=== PATIENT | female | born 1970 | race Caucasian/White ===

== ENCOUNTER 2016-10-11 13:41 | Inpatient (IN) | payer OTHER ==
[~2016-10-11] VITALS: Ht 170.2 cm; Wt 77.1 kg
--- NOTE | 2016-10-11 13:52 | NUR ---
46 Y/0 FEMALE PRESENTS WITH SI. STATES SHE HAS BEEN FEELING THIS WAY SINCE BEGINNING OF AUGUST; WAS ON ANTI-DEPRESSANT MEDICATIONS BUT STOPPED TAKING THEM 6 DAYS AGO "BECAUSE I WANTED TO". PT ADMITS TO OCCASIONAL COCAINE USE, LAST USE TUESDAY. DENIES PHYSICAL COMPLAINTS TAKEN TO STRETCHER IN AREA WITH SITTER PRESENT
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
[2016-10-11] MEDS ORDERED: LEVOTHYROXINE125 MCG PO (14:07)
[2016-10-11] MEDS ORDERED: OLANZAPINE10 M1 PO (14:07)
[2016-10-11] MEDS ORDERED: OLANZAPINE5 M2 PO (14:07)
[2016-10-11] MEDS ORDERED: FAMOTIDINE20 M1 PO (14:08)
[2016-10-11] MEDS ORDERED: OXCARBAZEPINE300 M1 PO (14:08)
[2016-10-11] MEDS ORDERED: CRESTOR20 M2 PO (14:08)
[2016-10-11] MEDS ORDERED: DULOXETINE HCL30 MG PO (14:08)
[2016-10-11] MEDS ORDERED: METHADONE10 MG/1 M2 PO (14:12)
--- NOTE | 2016-10-11 14:23 | NUR ---
LABS DRAWN AND SENT (SST, LAV)
[2016-10-11 14:32] LABS: ABSOLUTE BASOPHIL COUNT 0 /CUMM (0.0-0.2); ABSOLUTE EOSINOPHIL COUNT 0 /CUMM (0.0-0.7); ABSOLUTE GRANULOCYTE CT 8.2 /CUMM (1.4-6.5); ABSOLUTE LYMPH COUNT 1.7 /CUMM (1.2-3.4); ABSOLUTE MONOCYTE COUNT 0.7 /CUMM (0.10-0.60); BASOPHIL % 0.4 % (0.0-2.0); EOSINOPHIL % 0.3 % (0-5); GRANULOCYTE % 76.7 % (42.2-75.2); MEAN CORPUSCULAR HGB 28.6 PG (27.0-31.0); MEAN CORPUSCULAR HGB CONC 33.2 G/DL (33.0-37.0); MEAN PLATELET VOLUME 7.4 FL (7.4-10.4); PLATELET COUNT 382 /CUMM (130-400); RBC DISTRIBUTION WIDTH 17.4 % (11.5-14.5); RED BLOOD CELL CT 4.65 /CUMM (4.20-5.40); WHITE BLOOD CELL COUNT 10.7 /CUMM (4.8-10.8)
--- NOTE | 2016-10-11 15:20 | NUR ---
CALLED DIETARY TO ORDER DINNER TRAY FOR PT
--- NOTE | 2016-10-11 15:26 | NUR ---
HORACE CLARK AT BEDSIDE
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
--- NOTE | 2016-10-11 15:37 | NUR ---
PT MEDICATED WITH ATIVAN 0.5MG FOR ANXIETY. HER FRIEND REMAINS AT BEDSIDE.
--- NOTE | 2016-10-11 17:34 | NUR ---
DIRECTOR [employer]NATIONAL AT BEDSIDE FOR EVAL
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
--- NOTE | 2016-10-11 18:31 | NUR ---
PT MEDICATED WITH ATIVAN 0.5MG FOR ANXIETY
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
--- NOTE | 2016-10-11 19:45 | NUR ---
PT GIVEN BOX LUNCH TO EAT FOR DINNER
--- NOTE | 2016-10-11 21:04 | NUR ---
PT ASLEEP ON STRETCHER IN HALLWAY. PT ANTICIPATING TRANSFER DOWN TO [facility].
--- NOTE | 2016-10-11 22:43 | IP CRISIS DIAG ASSESS PSYCH ---
Diagnostic Assessment Basic Assessment Insurance Authorization: Insurance #1: Insurance name: [employer] MEDICARE COMPLETE Phone number: Policy number: [id number] Group number: [id number] Authorization number: Primary Care Physician: Patient's PCP: SILVIANO NEVES MD PCP's Phone Number: Patient's Quote: "I don't have coping skills to care for myself". Present Illness: Pt is a 46 year old single female brought to the ED by friend Brice because pt shared she had thoughts to kill herself. Pt plans to "overdose on drugs". Pt states she has been binging on Cocaine for the past 6 days, and "I stopped taking my psych medcations". Pt was alert, oriented and tearful. She reports she is feeling hopeless and depressed. Pt's eye contact was good. Pt denied feeling homicidal, but admits she still has suicidal thoughts. Pt states her diagnoses are Bipolar Disorder and Borderline Personality Disorder. Pt states approximately 1 year ago she tried to kill her self by stabbing herself with a knife. Pt showed me the scar on the top of her abdomen. The pt's mother Carol, confirmed that the pt was in fact hospitalized a year ago for stabbing herself in an attempt to kill herself. Pt report she has been addicted to opiates for approximately ten years. "I had a back injury" Pt was in a skiing accident and she became addicted to pain killers. Presently, pt is on a Methadone program at [facility] in [place]. She reports she takes 55mgs of Methadone daily. Also, pt takes the medications Zyprexa 10mgs AM & 10mgs PM, Cymbalta 30mgs and Trileptal 300mg. Pt states "I have been to many IOP and DBT programs". Pt feels that she hasn't been in a treatment or program that has worked for her. Pt reports she has had three months of sobriety in the years that she has used drugs and alcohol. Pt started using marijuana and alcohol at age 17. Pt's mother Carol reports that the pt has been struggling for years with depression, manic behaviors (stealing money from the family) and a history of Cocaine use since 2005. Carol (mother) reports the pt hasn't taken her psychotropic medications in about 1 week. Patient's Address: [address] [place] [address] Other Phone Number: Who Do You Live With? Family Feel Safe Where You Live? Yes Feel Safe in Your Relationship Yes Marital Status: single Do You Have Children? No Primary Language? Hungarian Language(s) Spoken At Home: Hungarian Family/Informants Interviewed: Phone contact with Carol Chilel Mother of pt. She reports pt hasn't been taking her psychotropic medications for about a week. She report's pt has been guarded and paranoid, as well as very depressed. Mrs. Chilel confirmed that the pt did try to kill herself about a year ago by stabbing and she was admitted to the hospital at [facility] in [place]. Allergies - Coded Allergies: haloperidol (From HALDOL) (Severe, RIGIDITY 10/11/16) Penicillins (UNKNOWN 10/11/16) clindamycin (UNKNOWN 10/11/16) Current Medications - Scheduled Medications Duloxetine HCl 30 MG CAPSULE.DR 1 CAP PO DAILY MENTAL HEALTH #7 (Reported) Entered as Reported by ADWOA KHALIL on 10/11/16 1408 Famotidine 20 MG TABLET 1 TAB PO BID GI #7 (Reported) Entered as Reported by ADWOA KHALIL on 10/11/16 1408 Levothyroxine Sodium 125 MCG TABLET 1 TAB PO DAILY AC THYROID #30 (Reported) Entered as Reported by ADWOA KHALIL on 10/11/16 1407 Methadone HCl 10 MG/ML ORAL.CONC 55 MG PO DAILY RECOVERY (Reported) Entered as Reported by ADWOA KHALIL on 10/11/16 1412 Olanzapine 10 MG TABLET 1 TAB PO DAILY MENTAL HEALTH #14 (Reported) Entered as Reported by ADWOA KHALIL on 10/11/16 1407 Olanzapine 5 MG TABLET 1 TAB PO QPM MENTAL HEALTH #14 (Reported) Entered as Reported by ADWOA KHALIL on 10/11/16 1407 Oxcarbazepine 300 MG TABLET 1 TAB PO BID MENTAL HEALTH #60 (Reported) Entered as Reported by ADWOA KHALIL on 10/11/16 1408 Rosuvastatin Calcium (Crestor) 20 MG TABLET 1 TAB PO DAILY CHOLESTEROL #7 ( Reported) Entered as Reported by ADWOA KHALIL on 10/11/16 1408 Consequences of Psych Med Use: Less Depressive and manic symptoms, stable moods Lab Results: Laboratory Tests 10/11/16 1603: Urine Opiates Screen 247.00, Methadone Screen > 735 H, Barbiturate Screen < 60, Ur Phencyclidine Scrn < 6.00, Amphetamines Screen < 100, U Benzodiazepines Scrn < 85, Urine Cocaine Screen > 1000 H, Urine Cannabis Screen 59.90 H 10/11/16 1455: Urine Opiates Screen < 100.00, Methadone Screen < 40, Barbiturate Screen < 60, Ur Phencyclidine Scrn < 6.00, Amphetamines Screen < 100, U Benzodiazepines Scrn < 85, Urine Cocaine Screen < 50, Urine Cannabis Screen < 5.00 10/11/16 1415: Anion Gap 9, Estimated GFR 59 L, BUN/Creatinine Ratio 10.0, Glucose 93, Calcium 9.4, Total Bilirubin 0.4, AST 15, ALT 27, Alkaline Phosphatase 89, Total Protein 6.9, Albumin 4.1, Globulin 2.8, Albumin/Globulin Ratio 1.5, TSH 105.000 H, Free T4 0.65, CBC w Diff NO MAN DIFF REQ, RBC 4.65, MCV 86.0, MCH 28.6, RDW 17.4 H, MPV 7.4, Gran % 76.7 H, Lymphocytes % 15.8 L, Monocytes % 6.8, Eosinophils % 0.3, Basophils % 0.4, Absolute Granulocytes 8.2 H, Absolute Lymphocytes 1.7, Absolute Monocytes 0.7 H, Absolute Eosinophils 0, Absolute Basophils 0, PUBS MCHC 33.2, Serum Alcohol < 10.0 Toxicology Screen Completed? Yes Results: positive Symptoms of Use: Suicidal ideations, depressive symptoms, no motivation unable to cope with life Past History Past Surgical History Surgical History SMALL BOWEL RESECTION C3/4 FUSION Abuse/Trauma History Trauma History/Current Trauma: Denies Legal History Current Legal Status: none Have you ever been arrested? 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 Diagnosis by History: Bipolar Disorder Borderline Personality Disorder Risk Factors: chronic/serious med cond., high anxiety/distress, history of suicide atmpts, SA/MH hospitalized, substance abuse, poor impulse control, limited support Substance Use/Abuse History Drug Use/Abuse minimum 12mo Hx Substances Used/Abused Yes Substance Used/Abused Cocaine First Use Age 17 Last Used 10/11/16 How much used/taken Unknown How often Daily (binging) For how long 3 months Route of use Smoke Substance Abuse Treatment Substance Abuse Treatment Past Substance Abuse TX Yes Inpatient Treatment Yes Outpatient Treatment Yes Location of Treatment [facility] Reason for Treatment Substance Abuse Dates of Treatment Unknown Response to Treatment Relapse Sexual History Sexually Active No # of partners 0 Sexual Orientation Heterosexual Use of Protection No Sexual Concerns: None reported Education History Highest Level of Education: not sure Preferred Learning Style: experiential Current Mental Status Mental Status Orientation: Person, Place, Situation Affect: Anxious, Depressed, Hopeless, Lonely, Sad Speech: Hyper-verbal, Loud Neuro-vegetative: Appetite Decreased, Helpless, Loss of Interest, Sleep Disturbance Appearance Appearance- Dress/Hygiene: Disheveled, unkempt not groomed. Behaviors Thought Process: Disorganized Thought Content: Paranoid, Pt states she doesn't feel safe Memory: WNL Insight: Fair SI/HI Risk Assessment - Minimum 6mo History- Past Suicidal Ideation/Attempts Yes Current Suicidal Ideation/Att Yes Past Homicidal Ideation/Att: No Current Homicidal Ideation/Attempts No Degree of Intent: Plan, Self Destructive/No , Thoughts/No Intent (HX OF AN ATTEMPT 1 YR AGO.) Danger To: Self Gravely Disabled: Inability, Poor Impulse Control, Poor Judgment Risk Factors: chronic/serious med cond., high anxiety/distress, history of suicide atmpts, SA/MH hospitalized, substance abuse, poor impulse control, limited support Lethality Ratin Needs/Init TX Plan/Goals: Monitor for safety Individual and group therapy Diagnostic evaluation Case management & discharge planning Medication evaluation AUDIT-C Questionnaire: AUDIT-C Questionnaire: Response Value ETOH use in the past year Never 0 # drinks typical/day Doesn't Drink 0 6 or > drinks per occasion Never 0 Total 0 DSM5/PS Stressors/Medical Prob Diagnosis' (DSM 5, Stressors, Medical): F31.5 Bipolar Disorder Severe Depressed, F14.20 Cocaine Use Disorder Severe, F11.20 Opioid Use Disorder Moderate Hx of BPD F17.209 Unspecified Tobacco-Related Disorder, Z59.9 Unspecified Housing & economic problems (disability benefits) Z65.9 Unspecified problems related psychosocial problems. Current GAF: 18
--- NOTE | 2016-10-11 23:50 | NUR ---
pT ARRIVED TO [facility] VIA WHEELCHAIR FROM [facility]. PT VERY SLEEPY, WAS WILLING TO ANSER A FEW QUESTIONS THEN STATED SHE HADN'T SLEPT IN 5 DAYS AND STOPPED ANSWERING QUESTIONS. " i WILL ANSWER ANYMORE QUESTIONS IN THE MORNING". PT IS A&OX3, POOR EYE CONTACT, DOZING AND VISIBLY IRRITABLE WHEN ASKED TO ANSWER QUESTIONS. SHOWN TO ROOM.
--- NOTE | 2016-10-12 04:54 | NUR ---
SLEPT IN INTERVALS UP PACING UNIT ASKING FOR CRACKERS EACH TIME.
--- NOTE | 2016-10-12 07:25 | NUR ---
CALLED CT COUNSELING THIS A.M METHADONE DOSE VERIFIED AT 55MG LAST TAKEN 09/10/16 (55 MG) SPOKE TO ANA AT 0630
[2016-10-12 07:47] VITALS: BP 97/54
[2016-10-12 12:25] VITALS: BP 97/67
--- NOTE | 2016-10-12 13:22 | History & Physical ---
General Information and HPI History of Present Illness: And this middle-aged female is admitted to the hospital because of suicidal ideation and polysubstance drug abuse. She has never been admitted in [place] previously according to the patient and claims that she came to [place] because this was more diagnosis place her psychiatric illness as well as drug rehabilitation and drug addiction. She claims that she was feeling too depressed and wanted to kill herself and therefore asked her friend to drive her to the hospital for evaluation where she was admitted for increasing depression and polysubstance abuse. From medical standpoint she denies any recent ongoing problems but admits that she has been doing a lot of drugs and has not been eating and drinking well and has not been taking her medications. He claims that she tried to kill herself last year and stabbed herself in the stomach when she was operated in [facility] in [place]. She also claims that she has Crohn's disease and was taking Remicade in the past but has not taken it in a long time and presently is not having any symptoms. She claims her bowels are fine and she does not have any bleeding with stools and no significant abdominal pain. She's not sure of any specific family illnesses claims she has never been and has no children and lives with her mother most of the time but sometimes is living with her friend. She is not employed and is on Social Security disability at this time because of psychiatric illness. Allergies/Medications Allergies: Coded Allergies: haloperidol (From HALDOL) (Severe, RIGIDITY 10/11/16) Penicillins (UNKNOWN 10/11/16) clindamycin (UNKNOWN 10/11/16) Home Med list Duloxetine HCl 30 MG CAPSULE.DR 1 CAP PO DAILY MENTAL HEALTH (Reported) Famotidine 20 MG TABLET 1 TAB PO BID GI (Reported) Levothyroxine Sodium 125 MCG TABLET 1 TAB PO DAILY AC THYROID (Reported) Methadone HCl 10 MG/ML ORAL.CONC 55 MG PO DAILY RECOVERY (Reported) Olanzapine 10 MG TABLET 1 TAB PO DAILY MENTAL HEALTH (Reported) Olanzapine 5 MG TABLET 1 TAB PO QPM MENTAL HEALTH (Reported) Oxcarbazepine 300 MG TABLET 1 TAB PO BID MENTAL HEALTH (Reported) Rosuvastatin Calcium (Crestor) 20 MG TABLET 1 TAB PO DAILY CHOLESTEROL ( Reported) Past History Travel History Traveled to [place] past 21 day No Medical History Neurological: NONE EENT: NONE Cardiovascular: NONE Respiratory: NONE Gastrointestinal: Crohn's disease Hepatic: NONE Renal: NONE Musculoskeletal: chronic back pain, disk herniation, fibromyalgia, rheumatoid arthritis, spinal stenosis Psychiatric: anxiety, bipolar disease, chronic pain disorder, depression, opioid dependence, substance abuse Endocrine: NONE Blood Disorders: NONE Cancer(s): NONE 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 Home Review of Systems Review of Systems Constitutional: Reports: see HPI. Denies: no symptoms. EENTM: Denies: no symptoms. Cardiovascular: Denies: no symptoms. Respiratory: Denies: no symptoms. GI: Denies: no symptoms (no symptom of Crohn's disease ), diarrhea, bloody stool, changes in stool. Genitourinary: Denies: no symptoms. Musculoskeletal: Denies: no symptoms. Skin: Denies: no symptoms. Neurological/Psychological: Reports: anxiety, depressed, emotional problems. Hematologic/Endocrine: Denies: no symptoms. Immunologic/Allergic: Denies: no symptoms. All Other Systems: Reviewed and Negative Exam & Diagnostic Data Last 24 Hrs of Vital Signs/I&O Vital Signs Date Time Temp Pulse Resp B/P Pulse O2 O2 Flow FiO2 Ox Delivery Rate 10/12 1225 69 97/67 10/12 0747 96.8 72 97/54 10/11 2128 98.2 84 16 130/70 98 Room Air 10/11 1815 98.2 80 16 134/76 98 Room Air 10/11 1526 97.4 80 16 127/73 93 Room Air 10/11 1447 Room Air 10/11 1350 96.4 76 16 110/73 95 Room Air Intake & Output 10/12 1600 10/12 0800 10/12 0000 Intake Total 250 Output Total Balance 250 Intake, Oral 250 Patient 170 lb Weight Physical Exam General Appearance Alert, Oriented X3, Cooperative, No Acute Distress Skin No Rashes, No Breakdown, No Significant Lesion HEENT Atraumatic, PERRLA, EOMI, Mucous Membr. moist/pink Neck Supple, No JVD, No thryomegaly, +2 Carotid Pulse wo Bruit Lymphatic Cervical nl Cardiovascular Regular Rate, Normal S1, Normal S2, No Murmurs, Gallops, Rubs Lungs Clear to Auscultation, Normal Air Movement Abdomen Normal Bowel Sounds, Soft, No Tenderness, No Hepatospenomegaly, No Masses, she has a midline scar consistent with a history of previous surgery after attempted suicide and self stabbing in the abdomen last year otherwise the exam is benign. Neurological Exam Findings: Normal Gait, Normal Speech, Strength at 5/5 X4 Ext, Normal Tone, Cranial Nerves 3-12 NL, Reflexes 2+ Cranial Nerves II through XII: Intact and within normal limits Extremities No Clubbing, No Cyanosis, No Edema, No Tenderness/Swelling Assessment/Plan Assessment: This middle-aged female is admitted for increasing depression and suicidal ideation as well as polysubstance drug abuse. From medical standpoint she does not have any acute problem at this time although she has a history of Crohn's disease for which she used to take Remicade that she has not taken in a long time but there is no symptom of Crohn's disease. She also has hypothyroidism and probably was on replacement but her TSH is 105 indicating that she has not been taking it for a while. For now we will give her small dose to start with because of possible underlying cardiac risk factors of smoking and cocaine and start her on 50 g for at least a week and then increase it to 75 for another 1-2 weeks instead of giving her all 125 g right away. I think this will be more prudent to start slow and gradually go on for replacement. Is no need for any other workup or treatment at this time from medical standpoint As Ranked By This Provider Problem List: 1. Chronic pain syndrome 2. Depression Qualifiers Depression Type: unspecified Qualified Code: F32.9 - Major depressive disorder, single episode, unspecified Miscellaneous Miscellaneous Documentation Attending Case Discussed With: RAMO LEUNG MD Primary Care Physician: SILVIANO NEVES MD Patient sees these Specialists none Level of Patient Care: MALLORY Dougherty Attending Review Statement Attending Statement Attending MD Statement: examined this patient, reviewed EMR data (avail), discussed with nursing Attending Assessment/Plan: This middle-aged female is admitted for increased depression and polysubstance abuse. She was reportedly on levothyroxin but has not been taking it because of very high TSH and we will start her on a smaller dose and instead of giving her 25 with only give her 50 g for one week and then increase to 75 g for the next week and gradually go back to her regular dose because of some possible underlying cardiac risk factors of smoking and cocaine abuse. She does not need any other workup or treatment from medical standpoint and will be seen as needed.
--- NOTE | 2016-10-12 13:50 | SOCIAL WORKER PROG NOTE PSYCH ---
Social Work Progress Note Progress Note Patient authorized for 3 days from [facility] at [phone] from 10/11-10/14, auth # [id number]. Review on 10/14 with Ashlee nina [id number]. Patient ID number is [id number].
--- NOTE | 2016-10-12 14:24 | NUR ---
PT WAS VISIBLE IN THE [place]. SHE HAS BEEN RESTLESS, AND PACING THE UNIT BUT SHARED THAT SHE WAS TIRES DURING PLANNING GROUP. PT DOES TRY TO LAY DOWN, BUT GETS UP SHORTLY AFTER. IN THE [place] PT HAS ATTENDED PLANNING MEETING BUT NO OTHER GROUPS. SHE HAS SOME INTERACTIONS WITH PEERS. PT HAS THOUGHTS TO HURT HERSELF, BUT HAS NO PLAN.
--- NOTE | 2016-10-12 15:36 | SOCIAL WORKER PROG NOTE PSYCH ---
Social Work Progress Note Progress Note Pt reports inability to care for herself, she is adamant about this, and repeats several times that she "doesnt want to live". She indicates she has no will to live and can not complete daily living skills, "I belong in an instituion". Pt reports having no supports since living alone, she used to live with her Mom and her sister.
--- NOTE | 2016-10-12 15:47 | SOCIAL WORKER SOCIAL HX PSYCH ---
Social History Basic Assessment Insurance Authorization: Insurance #1: Insurance name: [facility] Phone number: Policy number: [id number] Group number: [id number] Authorization number: Curr Source of Income/Entitlements: [facility] Primary Care Physician: Patient's PCP: SILVIANO NEVES MD PCP's Phone Number: Primary Language? Liberian Language(s) Spoken At Home: Liberian Living Situation Rents or Owns Home? rents Feel Safe Where You Are Living No Feel Safe in Relationships? No Comments: Pt does not want to live alone,a nd she only has social relationships "with people who use drugs" Allergies - Coded Allergies: haloperidol (From HALDOL) (Severe, RIGIDITY 10/11/16) Penicillins (UNKNOWN 10/11/16) clindamycin (UNKNOWN 10/11/16) Current Medications - Scheduled Medications Duloxetine HCl 30 MG CAPSULE.DR Cardoza CAP PO DAILY MENTAL HEALTH #7 (Reported) Entered as Reported by ADWOA KHALIL on 10/11/161407 Last Taken: 10/06/16 0800 Famotidine 20 MG TABLET 1 TAB PO BID GI #7 (Reported) Entered as Reported by ADWOA KHALIL on 10/11/161407 Last Taken: 10/06/16 0800 Levothyroxine Sodium 125 MCG TABLET 1 TAB PO DAILY AC THYROID #30 (Reported) Entered as Reported by ADWOA KHALIL on 10/11/161406 Last Taken: 10/06/16 0800 Methadone HCl 10 MG/ML ORAL.CONC 55 MG PO DAILY RECOVERY (Reported) Entered as Reported by ADWOA KHALIL on 10/11/16 1412 Last Taken: 10/11/16 0800 Olanzapine 10 MG TABLET 1 TAB PO DAILY MENTAL HEALTH #14 (Reported) Entered as Reported by ADWOA KHALIL on 10/11/161406 Last Taken: 10/06/16 0800 Olanzapine 5 MG TABLET 1 TAB PO QPM MENTAL HEALTH #14 (Reported) Entered as Reported by ADWOA KHALIL on 10/11/161406 Last Taken: 10/05/16 2200 Oxcarbazepine 300 MG TABLET 1 TAB PO BID MENTAL HEALTH #60 (Reported) Entered as Reported by ADWOA KHALIL on 10/11/161407 Last Taken: 10/05/16 2200 Rosuvastatin Calcium (Crestor) 20 MG TABLET 1 TAB PO DAILY CHOLESTEROL #7 ( Reported) Entered as Reported by ADWOA KHALIL on 10/11/161407 Last Taken: 10/06/16 0800 Past History Past Medical History Neurological: NONE EENT: NONE Cardiovascular: NONE Respiratory: NONE Gastrointestinal: Crohn's disease Hepatic: NONE Renal: NONE Musculoskeletal: chronic back pain, disk herniation, fibromyalgia, rheumatoid arthritis, spinal stenosis Psychiatric: anxiety, bipolar disease, chronic pain disorder, depression, opioid dependence, substance abuse Endocrine: NONE Blood Disorders: NONE Cancer(s): NONE ORTHOTICS ASSISTANT/Reproductive: NONE Past Surgical History Surgical History: non-contributory /Family History Place/Country of Origin: [place], [place] Childhood Family Constellation: Mom Dad sister and 2 brothers Primary Childhood Caretakers: father, mother Family Life During Childhood: "good" DCF Involvement? No Mother's Age (Current/): 74 Relationship w/Mother: We just had a falling out, but it has been strained since the day I was born Father's Age (Current/): 70 ( ) Relationship w/Father: he 3 years ago of brain cancer Any Sibling(s)? Yes Sibling's Gender(s)/Age(s): female Sibling 1:, male Sibling 2:, male Sibling 3: Relationship w/Sibling(s): we all get a long a little bit Relationship w/Friends: I have no supports Family Psych/Sub Abuse/Add Hx: denies Number of Pregnancies: 0 Number of Miscarriages: 0 Number of Abortions: 0 Other Comments: No children Abuse/Trauma History Trauma History/Current Trauma: Denies Legal History Legal Guardian/Address/Phone: self Current Legal Status: none Pending Court Dates: denies Have you ever been arrested No Number of Arrests: 0 Hx of Juvenile Legal Charges? No Hx of Adult Legal Charges? No Civil Proceedings: denies Domestic Relations Court: denies Child Protective Serv Involvmnt denies Case Advocate N/A Psychosocial History Primary Support System: I cant think of anyone Strengths/Capabilities: Desire to feel better Able to ask for help Engaged in outpatient treatment currently Weaknesses: little support in her life, and feels like she cant take care of herself Physical Limitations (Interventions): Physical pain due to multiple medical conditions Last Physical: unknown History of Seizures? No History of Blackouts? No ADL Limitations: She reports not being able to take care of herself and has poor ADLS. [place]/Social/Peer Relations cant identify supports Meaningful Activities: None Childhood Mu-Ism: Restorationism Current Gnosticism Affiliation: Restorationism Is Spirituality Important to You? yes Cultural/Ethnic Issues: denies Are There Developmental Issues? No Milestones Achieved: fine motor, gross motor Psychiatric Treatment History Psych Treatment Inpatient Treatment Yes [facility] Suicidal attempt, Depression Bipolar Disorder Dates of Treatment 2005 Response to Treatment Relaspe, Discontinued psychotropic medications. Precipitating Factors: living alone Current Paratransit Operator: Dr. Victor "a walk in clinic in [place]" Diagnosis: Bipolar Disorder Borderline Personality Disorder Risk Factors: chronic/serious med cond., high anxiety/distress, history of suicide atmpts, SA/MH hospitalized, substance abuse, poor impulse control, limited support Substance Use/Abuse History Drug Use/Abuse Substance Used/Abused Cocaine First Use Age 17 Last Used 10/11/16 How much used/taken Unknown How often Daily (binging) For how long 3 months Route of use Smoke Have Had Periods of Sobriety? Yes Explain: pt had been involved in AA, and was lauren unsure of details Relapse History? Yes Have You Ever Attended AA? Yes Do You Attend AA Currently? No Do You Have a Sponsor? No Symptoms of Use: Suicidal ideations, depressive symptoms, no motivation unable to cope with life Substance Abuse Treatment Substance Abuse Treatment Inpatient Treatment Yes Outpatient Treatment Yes Location of Treatment [facility] Reason for Treatment Substance Abuse Dates of Treatment Unknown Response to Treatment Relapse Sexual History Sexually Active No # of partners 0 Sexual Orientation Heterosexual Use of Protection No Sexual Concerns: None reported Education History Highest Level of Education: high school/GED Highest Grade Completed: 12th Vocational Year Completed: n/a Number of College Years: 0 Preferred Learning Style: experiential HX of Learning Difficulties: None reported Barriers to Learning: None reported Special Communication Needs: None reported Employment History Employment Disability Not in Labor Force: Disabled No. of Jobs in Last 5 Years: 0 History Have You Been in The ? No Current Mental Status Mental Status Orientation: Person, Place, Situation Affect: Anxious, Depressed, Hopeless, Lonely, Sad Speech: Hyper-verbal, Loud Neuro-vegetative: Appetite Decreased, Helpless, Loss of Interest, Sleep Disturbance Appearance Appearance- Dress/Hygiene: Disheveled, unkempt not groomed. Behaviors Thought Process: Disorganized Thought Content: Paranoid, Pt states she doesn't feel safe Memory: WNL Insight: Fair SI/HI Risk Assessment Past Suicidal Ideation/Attempts Yes Current Suicidal Ideation/Att Yes Past Homicidal Ideation/Att: No Current Homicidal Ideation/Attempts No Degree of Intent: Plan, Self Destructive/No , Thoughts/No Intent (HX OF AN ATTEMPT 1 YR AGO.) Danger To: Self Gravely Disabled: Inability, Poor Impulse Control, Poor Judgment Lethality Ratin - Conclusion and Recommendations for treatment - and discharge planning
[2016-10-12 16:00] VITALS: BP 102/75
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
--- NOTE | 2016-10-12 16:48 | NUR ---
Pt reported passive SI thoughts @ 1600 vital signs, however no plan, feels safe here and would not attempt to harm self here, present on the unit and able to verbalize needs, appropriate, and pleasant to interact with, Dr. Patrick informed of the above as well, no further orders - staff aware as well.
--- NOTE | 2016-10-12 19:14 | SOCIAL WORKER TX PLAN PSYCH ---
Treatment Plan - Please Document: - Evidence that there is ongoing collaboration between - the patient and the interdisciplinary team, - including the patient's active participation and - responsibility for engaging in the treatment regimen, - and that the treatment plan is individualized and - relevant to the patient's conditions. - Treatment plan should reflect documentation indicating - that all active therapeutic efforts are included. Strengths/Capabilities: Desire to feel better Able to ask for help Engaged in outpatient treatment currently Physical Limitations (Interventions): Physical pain due to multiple medical conditions Patient Identified Trmt Goals: " I have no will to live, nothing will get better for me." Discharge Plan: IOP Problem/Goals #1 Problem #1: suicidal ideation Goal (Short Term): Today I will attend 2 groups Today I will identify 2 stressors Today I will identify 2 positive supports Today I will work on recognizing 3 emotions I am feeling Goal (Driver Examiner): Be free of suicidal thoughts/attempts Develop 3 coping skills to deal with depression Identify 3 positive support systems to call in crisis Develop a crisis plan with 3 zafar people Identify 2 positive traits per week about myself Identify 2 things I have to look forward to Identify 2 positive people in my life and 1 thing I appreciate about them Interventions: Learn ways to manage depressive symptoms accordingly and identify positive supports to manage life stressors and mood fluctuations. Modalities: Encourage groups, education on depression, provide CBT treatment, family meeting. DSM5/PS Stressors/Medical Prob Diagnosis' (DSM 5, Stressors, Medical): F31.5 Bipolar Disorder Severe Depressed, F14.20 Cocaine Use Disorder Severe, F11.20 Opioid Use Disorder Moderate Hx of BPD F17.209 Unspecified Tobacco-Related Disorder, Z59.9 Unspecified Housing & economic problems (disability benefits) Z65.9 Unspecified problems related psychosocial problems. Current GAF: 18 Treatment Team - Responsibilities of members of the treatment team include: - Medication Management- MD or CHURCH ADMINISTRATOR - Medication Administration and Monitoring- Nurse - Group Therapy- Occupational Therapist - 1:1 Therapy,Disch Planning,family involvement-Flame Cutter
[2016-10-12 20:22] VITALS: BP 98/56
--- NOTE | 2016-10-12 22:43 | NUR ---
Pt is present on the unit, pacing at times and can be social and appropriate yet abruptly become irritable, compliant with PRN administration when staff feels it's applicable and appropriate, affect is constricted, cooperative and compiant overall.
--- NOTE | 2016-10-13 04:55 | NUR ---
PT UP AND DOWN THRU FIRST HALF OF THE NIGHT. PT RECEIVED CPZ 25 AT 0000 WITH EVENTUAL EFFECT.
[2016-10-13 07:51] VITALS: BP 98/50
--- NOTE | 2016-10-13 10:12 | SOCIAL WORKER PROG NOTE PSYCH ---
Social Work Progress Note Progress Note This lyric writer met with patient for the first time today. Patient tearful stating that she has no will to live, and nothing will ever change for her. Patient reports feeling this way since 2005. Patient is refusing to allow me to speak with her mother who patient resides with. Patient states that her mother wants nothing to do with her and that she will not participate in her treatment. Patient refusing to let me reach out to her mother to see if she wants to participate in patients treatment. Patient stating that she does not wish to return to living with her mother and that she wants to be "institutionalized." Patient informed that it is not an easy process to place someone in another type of residence directly from the hospital and there are long waiting lists. Patient was very upset to hear this. This lyric writer attempted to reassure patient that we will set her up with treatment and support when she leaves here so that she does not continue to feel this way. Patient also notified that we will not be discharging her until she starts to feel better and is denying suicidal thoughts. Patient is still actively suicidal and reports that she has no desire to live going forward. Patient reports that she has no supports in the community and that she was brought to the hospital by Jenny, who she met at [facility] in August and has only known since August. Patient reports that she is in methadone maintenance at [facility] and her counselor is Brittany Toro and is allowing me to speak to her.
[2016-10-13 12:19] VITALS: BP 108/69
--- NOTE | 2016-10-13 13:56 | NUR ---
PT WAS VISIBLE IN THE [place] FOR MOST OF THE DAY. DURING PLANNING MEETING IT WAS SHARED TO ME BY THE OTHER MHW THAT PT WAS IRRITABLE AND WOULD NOT MAKE A TREATMENT GOAL. IN THE [place] PT HAS SOME INTERACTIONS WITH PEERS. SHE IS COOPERATIVE WITH STAFF ABOUT GETTING VITALS, AND EATING MEALS. PT DOES HAVE THOUGHTS TO HURT SELF WHEN ASKED, BUT NO PLANS ACCORDING TO THE MHW WHO TALKED TO HER ABOUT IT.
[2016-10-13 15:46] VITALS: BP 115/64
--- NOTE | 2016-10-13 17:22 | CP SOUTH PROGRESS NOTE PSYCH ---
Psych (Inpt) Progress Note Progress Note Include the following elements, when applicable: Involvement in the active treatment of the patient with behavioral observations of the patient and the patient's response to the treatment. Review of the ongoing treatment process in the context of the treatment plan. Indication of how multi-disciplinary staff members are carrying out the treatment plan. Plans for future interventions and recommendations for revision of the treatment plan. Liaison with other physicians/providers. Progress Note: Case and treatment plan discussed in team meeting. Staff reports that the patient can be angry and impulsive. Abrupt. Annoyed about EKG. Stormed out of meeting with executive secretary social welfare. Patient seen at 2:22 pm. She is wearing blue scrubs. Reports she is still very depressed and feels very tired. Reports she isn't sleeping well. States she didn't try trazodone because of prior trazodone hangovers. Report Thorazine is helping with anxiety but does not want a dose increase. Claims she can get sick from Thorazine (vague). Affect is less irritable and less distraught than yesterday. Sad 06/14. Anxiety 06/14. Feels hopeless, helpless, worthless and guilty. Reports SI, "same." Gives a safety promise for here. Denies HI, AH, VH and PI. Reports she slept maybe 2-3 hours, if that. Reports appetite is okay. Energy: none. Reports overall that she hasn't been this bad (off) in a long time. IMPRESSION: Slow progress. Continue present treatment plan. Patient is here after being off medications and binging on cocaine for a week.
[2016-10-13 20:02] VITALS: BP 101/61
--- NOTE | 2016-10-14 05:34 | NUR ---
PT SLEPT BEFORE AND AFTER PRN CPZ AT 0145.
[2016-10-14 07:47] VITALS: BP 96/62
--- NOTE | 2016-10-14 10:20 | NUR ---
Dr. Patrick aware of EKG results, no further orders.
--- NOTE | 2016-10-14 10:45 | NUR ---
Dr. Patrick aware today (10/14/16 @ 1040am) of black and white copy of EKG from 10/12/16 and no further orders at this time.
[2016-10-14 12:03] VITALS: BP 108/69
--- NOTE | 2016-10-14 12:05 | NUR ---
Pt reporting not sleeping well and has been in her room for majority of day thus far, did not attend any groups today either and is overall calm yet has an irritable edge yet when engaged appears motivated and pleasant.
--- NOTE | 2016-10-14 12:08 | NUR ---
During 0800 vital signs when asked if there are any thoughts to harm self pt reported yes yet no plan in the hospital, Dr. Patrick and team aware in morning meeting.
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
--- NOTE | 2016-10-14 15:07 | CP SOUTH PROGRESS NOTE PSYCH ---
Psych (Inpt) Progress Note Progress Note Include the following elements, when applicable: Involvement in the active treatment of the patient with behavioral observations of the patient and the patient's response to the treatment. Review of the ongoing treatment process in the context of the treatment plan. Indication of how multi-disciplinary staff members are carrying out the treatment plan. Plans for future interventions and recommendations for revision of the treatment plan. Liaison with other physicians/providers. Progress Note: Case and treatment plan discussed in team meeting. Staff reports that the patient's moods are balancing out. Paced a lot. Irritable at times. A1c was 5.9. Reports suicidal ideation to overdose. Patient seen at 2:54 PM. Patient states she doesn't know if things are different at all. Reports she is trying hard to engage with people and talk to people. Reports she attends groups but does not feel able to participate because of poor concentration and easy agitation. Affect appears brighter, less irritable. She seems calmer. Reports she is trying. Rates sad mood about 9/ 10. Reports anxiety is still high at 10/10. Feels hopeless, helpless, worthless and guilty. Requests increase in trazodone dose to 100 mg. Wants Dulcolax p.r.n. Reports suicidal ideation continues, unchanged. Gives a safety promise for here. Denies homicidal ideation. Denies auditory and visual hallucinations and paranoid ideation. Reports sleep is terrible and she was up and down all night. Appetite is described as okay, not bad. Reports she has no energy. Reports she had been on Cymbalta 60 mg b.i.d. but this was reduced to 30 mg daily at [facility] when she was placed on Zyprexa. Would like an increase in Cymbalta dose now. IMPRESSION: Slow progress. Continue present treatment plan. We will now increase Cymbalta to 60 mg daily. We will add p.r.n. Dulcolax. We will change trazodone to 100 mg q.h.s. standing and 50 mg q.h.s. p.r.n. insomnia. The patient continues to require inpatient level of care.
[2016-10-14 15:50] VITALS: BP 106/71
[2016-10-14 19:27] VITALS: BP 115/68
--- NOTE | 2016-10-14 22:06 | NUR ---
HAD GOOD EVENING NO MORE PACING, WATCHING TV [employer] KEEP STAFF UPDATED ON SCHOOL DELAYS.
--- NOTE | 2016-10-15 05:34 | NUR ---
SLEPT WELL WOKE AT ONE POINT ASKING FOR THORAZINE 25MG PO GIVEN.
[2016-10-15 07:21] VITALS: BP 99/65
[2016-10-15 12:00] VITALS: BP 96/63
--- NOTE | 2016-10-15 14:09 | CP SOUTH PROGRESS NOTE PSYCH ---
Psych (Inpt) Progress Note Progress Note Include the following elements, when applicable: Involvement in the active treatment of the patient with behavioral observations of the patient and the patient's response to the treatment. Review of the ongoing treatment process in the context of the treatment plan. Indication of how multi-disciplinary staff members are carrying out the treatment plan. Plans for future interventions and recommendations for revision of the treatment plan. Liaison with other physicians/providers. Progress Note: Case and treatment plan discussed in team meeting. Staff reports that the patient seems calmer. Doing better. More talkative with staff. Sporadically attends groups. Family meeting is scheduled for Tuesday at 12 noon with mother and sister. Patient seen at 11:43 AM. States "I'm hanging in there, I'm trying." Reports she attends group but does not participate. She indicates that she signed a release of information for records from [facility]. Affect is calm and blunted. Reports trazodone put her to sleep but did not keep her sleep. I encouraged her to use the 50 mg p.r.n. dose as well. Reports mood is okay, all right. Rates sad mood about 9/10 and anxiety 10/10. Feels hopeless, helpless, worthless and guilty. Reports suicidal ideation remains (unchanged). Gives a safety promise for here. Denies homicidal ideation. Denies auditory and visual hallucinations and paranoid ideation. Reports appetite is okay, that she is eating. States she does not have any energy. Tolerating medications well, without complaint. Patient is asking about a possible change from Thorazine to Zyprexa. We began Thorazine as an alternative to benzodiazepines. Consider switching over from Thorazine to Zyprexa next week, if indicated. Staff approached me after I rounded on the patient, indicating that she was experiencing restlessness. Akathisia is less common with low potency neuroleptics, such as Thorazine. Nonetheless, I ordered Benadryl 25 mg 1. Nursing staff reported that the patient then refused the Benadryl. There may be a possibility of benzodiazepine-seeking. IMPRESSION: Slow progress. Continue present treatment plan. Monitor response to current medication regimen. Anticipate discharge on Tuesday if no longer suicidal.
--- NOTE | 2016-10-15 14:21 | NUR ---
PT WAS VISIBLE IN THE [place] TODAY. SHE HAS BEEN ATTENDING GROUPS TODAY. IN THE FOCUS GROUP PT SHARED SHE NEEDED TO COMMUNICATE HER NEEDS MORE, AND STRUGGLES WITH ADVOCATING FOR HERSELF. PT WENT TO ACCUPUNCTURE BUT LEFT BECAUSE SHE FELT UNFOCUSED AND FIDGITY. PT HAS BEEN COOPERATIVE WITH STAFF DIRECTION AND DENIES THOUGHTS TO HURT SELF WHEN ASKED.
[2016-10-15 15:56] VITALS: BP 95/60
--- NOTE | 2016-10-15 16:45 | SOCIAL WORKER PROG NOTE PSYCH ---
Social Work Progress Note Progress Note Met with Carol this morning. She stated her mood is "terrible" and she has "no will to live." She repeated several times how she "can't do anything for herself." She stated her sleep was not good last night - was up and down. She stated 'I can't engage in life," a statement she repeats. She reports SI today, no HI, no AH/VH. Discussed with her how she has been off Opiates for several months since on Methadone, and has a family that cares for her, and a place to live (hopefully). She seemed to perseverate on negative thougths for a while, when challenged those thoughts - she ageed with a nod, and made eye contact, noting that medication and family is a postive in her life. She identified how Thorazine helps "keep me calm." Also, helped her see that she does know what helps. She does not go to AA or NA in her community. She is lookign forward to the family meeting on Wednesday 10/18 with her Mother and sister. She wanted to know what her counselor, Brittany/[facility] had to say to Maria Isabel Layton LCSW.
[2016-10-15 19:33] VITALS: BP 115/60
--- NOTE | 2016-10-15 20:32 | NUR ---
PT IS STABLE WITH FULL RANGE OF AFFECT. VISIBLE WITHIN THE COMMUNITY AND INTERACTING WITH PEERS/STAFF. VERY POLITE AND APPROPRIATE TO THE UNIT. CURRENTLY IN THE LOUNGE DOZING OFF WHILE WATCHING TV. VS ARE STABLE AND DENIES ANY SI/HI TO THIS MHW.
--- NOTE | 2016-10-16 05:41 | NUR ---
PT APPEARED TO SLEEP. PT LESS ANXIOUS. PT RECEIVED COMMUNION YESTERDAY.
[2016-10-16 08:15] VITALS: BP 115/80
[2016-10-16 12:34] VITALS: BP 104/66
--- NOTE | 2016-10-16 13:28 | CP SOUTH PROGRESS NOTE PSYCH ---
Psych (Inpt) Progress Note Progress Note Include the following elements, when applicable: Involvement in the active treatment of the patient with behavioral observations of the patient and the patient's response to the treatment. Review of the ongoing treatment process in the context of the treatment plan. Indication of how multi-disciplinary staff members are carrying out the treatment plan. Plans for future interventions and recommendations for revision of the treatment plan. Liaison with other physicians/providers. Pt notes that she has been crying all day. She notes "hopeless, helpless, and just want to ." She noted continued SI without plan. Denies HI. Feels that she is "the same every day." Amenable to keeping a journal of her emotions as noted by RNs to have improved mood at times, which the patient does not agree with. Current Medications Sig/Sudeep Start time Last Medication Dose Route Stop Time Status Admin Acetaminophen 650 MG Q4P PRN 10/11 1845 AC PO Al Hydroxide/Mg 30 ML Q4-6 PRN PRN 10/11 1845 AC Hydroxide PO Atorvastatin Calcium 80 MG 1700 10/12 1700 AC 10/15 PO 1639 Bisacodyl 5 MG DAILY NEEDED PRN 10/14 1515 AC 10/15 PO 1204 Chlorpromazine 25 MG TID 10/12 1600 AC 10/16 PO 1230 Chlorpromazine 25 MG Q4P PRN 10/12 1430 AC 10/15 PO 1754 Docusate Sodium 100 MG TID 10/14 1000 AC 10/16 PO 1229 Duloxetine HCl 60 MG DAILY 10/15 1000 AC 10/16 PO 1230 Famotidine 20 MG DAILY AC 10/13 0700 AC 10/16 PO 0656 Hydroxyzine HCl 25 MG TID PRN 10/16 1315 UNVr PO Levothyroxine Sodium 0.05 MG DAILY AC 10/13 0700 AC 10/16 PO 0657 Methadone HCl 55 MG DAILY 10/11 1839 AC 10/16 PO 1229 Nicotine 14 MG DAILY 10/12 1632 AC 10/16 TOP 1230 Oxcarbazepine 300 MG BID 10/11 2200 AC 10/16 PO 1230 Trazodone HCl 100 MG AT BEDTIME 10/14 2200 AC 10/15 PO 2126 Trazodone HCl 50 MG AT BEDTIME NEED.. 10/13 1730 AC 10/13 PO 2114 Vital Signs Date Time Temp Pulse Resp B/P Pulse O2 O2 Flow FiO2 Ox Delivery Rate 10/16 1234 93 104/66 10/16 0815 97.1 90 115/80 10/15 1933 97.4 66 115/60 10/15 1556 72 95/60 MSE Appears as stated age. Cooperative behavior, good, appropriate eye contact. Nl speech rate and prosody. No psychomotor retardation or agitation. Mood depressed Affect sad, depressed, constricted, appropriate, non-liable. Linear and goal directed thought process. Denies SI or HI. Does not appear to be responding to internal stimuli. Denies AVHs, paranoia, or delusions. I/J: limited A/P: Pt with BP disorder, most recently depressed with continued depression and anxiety. Though reports near constant poor mood and SI, noted to have some affective variation that pt is not aware of. Encourage to keep mood journal to link mood and thoughts. - Atarax 25mg PRN anxiety - Continue current medication regimen
--- NOTE | 2016-10-16 13:43 | NUR ---
PT IS COMPLIANT AND COOPERATIVE. MOOD IS STABLE WITH A CONSTRICTED AND EUTHYMIC AFFECT. PT DENIES SI AT THIS TIME, NO COMPLAINTS OFFERED. PT HAS BEEN WITHDRAWN IN ROOM MOST OF DAY- C/O DROWSINESS FROM SLEEP MEDS. PT OOB MORE DURING EARLY AFTERNOON. PT IS INTERACTING WITH PEERS AND STAFF. PT HAS REFUSED GROUPS TODAY. VITALS ARE STABLE, APPETITE IS GOOD.
[2016-10-16 16:21] VITALS: BP 92/64
[2016-10-16 19:41] VITALS: BP 99/61
--- NOTE | 2016-10-16 22:35 | NUR ---
PT IS VISIBLE ON UNIT, SOCIAL WITH PEERS AND STAFF. ATTENDED WRAP UP MEETING AND PARTICIPATED. PLEASANT AND COOPERATIVE. NO COMPLAINTS OR SI REPORTED. PT HAS A STABLE MOOD AND FULL RANGE AFFECT.
--- NOTE | 2016-10-17 05:11 | NUR ---
AWAKE FEW TIMES DURING THE SHIFT.
[2016-10-17 08:44] VITALS: BP 95/57
--- NOTE | 2016-10-17 09:27 | CP SOUTH PROGRESS NOTE PSYCH ---
Psych (Inpt) Progress Note Progress Note Include the following elements, when applicable: Involvement in the active treatment of the patient with behavioral observations of the patient and the patient's response to the treatment. Review of the ongoing treatment process in the context of the treatment plan. Indication of how multi-disciplinary staff members are carrying out the treatment plan. Plans for future interventions and recommendations for revision of the treatment plan. Liaison with other physicians/providers. Progress Note: Pt notes continued depression. She feels that mood is unchanged since admission. In the past, took up to 120mg of duloxetine with good effect. Notes no issues with sleep. Denies SI or HI. Current Medications Sig/Sudeep Start time Last Medication Dose Route Stop Time Status Admin Acetaminophen 650 MG Q4P PRN 10/11 1845 AC PO Al Hydroxide/Mg 30 ML Q4-6 PRN PRN 10/11 1845 AC Hydroxide PO Atorvastatin Calcium 80 MG 1700 10/12 1700 AC 10/16 PO 1656 Bisacodyl 5 MG DAILY NEEDED PRN 10/14 1515 AC 10/16 PO 1656 Chlorpromazine 25 MG TID 10/12 1600 AC 10/17 PO 0908 Chlorpromazine 25 MG Q4P PRN 10/12 1430 AC 10/17 PO 0157 Docusate Sodium 100 MG TID 10/14 1000 AC 10/17 PO 0906 Duloxetine HCl 90 MG DAILY 10/17 1000 UNVr PO Duloxetine HCl 60 MG DAILY 10/15 1000 DC 10/17 PO 0907 Famotidine 20 MG DAILY AC 10/13 0700 AC 10/17 PO 0905 Hydroxyzine HCl 25 MG TID PRN 10/16 1315 AC PO Levothyroxine Sodium 0.05 MG DAILY AC 10/13 0700 AC 10/17 PO 0905 Methadone HCl 5 MG .STK-MED ONE 10/16 1223 DC PO 10/16 1224 Methadone HCl 55 MG DAILY 10/11 1839 AC 10/17 PO 0909 Nicotine 14 MG DAILY 10/12 1632 AC 10/17 TOP 0907 Oxcarbazepine 300 MG BID 10/11 2200 AC 10/17 PO 09 Trazodone HCl 100 MG AT BEDTIME 10/14 2200 AC 10/15 PO 2126 Trazodone HCl 50 MG AT BEDTIME NEED.. 10/13 1730 AC 10/16 PO 2322 Vital Signs Date Time Temp Pulse Resp B/P Pulse O2 O2 Flow FiO2 Ox Delivery Rate 10/17 0844 96.7 79 95/57 10/16 1941 96.0 80 99/61 10/16 1621 96 92/64 10/16 1234 93 104/66 Appears as stated age. Cooperative behavior, good, appropriate eye contact. Nl speech rate and prosody. No psychomotor retardation or agitation. Mood depressed Affect depressed, flat, constricted, appropriate, non-liable. Linear and goal directed thought process. Denies SI or HI. Does not appear to be responding to internal stimuli. Denies AVHs, paranoia, or delusions. I/J: limited A/P: Pt with Bipolar disorder with continued poor mood. Have trialed increase in duloxetine. - Duloxetine increased from 60mg to 90mg - Continue other medications - Encouarge journaling and groups to help mood
[2016-10-17 11:58] VITALS: BP 104/59
--- NOTE | 2016-10-17 13:33 | NUR ---
Pt is A&O X 3, compliant with medication and group therapies. Pt is present in the community, interacts appropriately with other peers and staff members is demonstrating less anxiety, agitation or depressive effect. report less night sleep but had good appetite. Pt's vital sign is stable, denies any physical discomfort or pain, denies thought of self-harm and to someone else.
[2016-10-17 16:12] VITALS: BP 99/60
[2016-10-17 19:46] VITALS: BP 91/63
--- NOTE | 2016-10-18 06:50 | NUR ---
PATIENT AWAKE X1, GIVEN PRN THORAZINE, OTHERWISE SLEPT ALL NIGHT.
[2016-10-18 07:59] VITALS: BP 96/58
[2016-10-18 12:07] VITALS: BP 119/67
--- NOTE | 2016-10-18 14:42 | NUR ---
PT HAS BEEN MOSTLY ISOLATIVE THIS SHIFT BUT WHEN STAFF TALKED TO HER ABOUT ISOALTING, PT HAS BEEN OUT IN COMMUNITY. PT STATES SHE IS HAVING "BAD THOUGHTS" MENTIONING SI THOUGHTS. PT SAYS SHE WOULD NOT ACT ON THEM HERE AND WANTS THEM TO STOP. PT HAS BEEN ATTENDING GROUPS AFTER THIS MORNING. PT MOOD IS STABLE WITH A FLAT, DEPRESSED AFFECT.
--- NOTE | 2016-10-18 14:56 | SOCIAL WORKER PROG NOTE PSYCH ---
Social Work Progress Note Progress Note Patient reports having a rough weekend and found herself sad and depressed frequently throughout the weekend. Patients mother was planning to come in for a family meeting tomorrow but has decided not to come. Patients mother was notified that we would be discussing discharge planning for the patient and that discharge would be in the near future. Mother shared that she does not want patient to return to her house and believes her daughter needs to be placed in a custodial facility to reside permanently. She is aware that we are not making these preparations for patient due to lack of resources in the communtiy and financial options. Patient is aware of this as well and also upset that this is not an optino. Patient did report that she is able to reside with a friend, Brice, and is going to ask Brice if she can come in for a meeting prior to patient discharging with her. Patient identifies Brice as a positive support for her and someone she feels safe staying with.
[2016-10-18 15:51] VITALS: BP 112/53
--- NOTE | 2016-10-18 17:01 | CP SOUTH PROGRESS NOTE PSYCH ---
Psych (Inpt) Progress Note Progress Note Progress Note: I discussed this patient's progress to date, current mental status, treatment process in the context of the treatment plan, and discharge planning with staff/ team in the daily morning inpatient team meeting. I also met with the patient myself in individual session. A total of 15 minutes was spent with the patient with more than 50% spent in counseling and/or coordination of care. SUBJECTIVE: "I'm very depressed. I cannot engage in life. I cannot take care of myself. I've tried so hard. I've been to DBT, other programs, the medicine doesn't help. I don't have the will to live. I need someone to take care of me. " OBJECTIVE: Current Medications Sig/Sudeep Start time Last Medication Dose Route Stop Time Status Admin Acetaminophen 650 MG Q4P PRN 10/11 1845 AC PO Al Hydroxide/Mg 30 ML Q4-6 PRN PRN 10/11 1845 AC Hydroxide PO Atorvastatin Calcium 80 MG 1700 10/12 1700 AC 10/18 PO 1545 Bisacodyl 5 MG DAILY NEEDED PRN 10/14 1515 AC 10/18 PO 1543 Chlorpromazine 25 MG TID 10/12 1600 DC 10/18 PO 1543 Chlorpromazine 25 MG Q4P PRN 10/12 1430 DC 10/18 PO 1212 Docusate Sodium 100 MG TID 10/14 1000 AC 10/18 PO 1543 Duloxetine HCl 90 MG DAILY 10/17 1000 AC 10/18 PO 1107 Famotidine 20 MG DAILY AC 10/13 0700 AC 10/18 PO 0704 Hydroxyzine HCl 25 MG TID PRN 10/16 1315 DC PO Levothyroxine Sodium 0.05 MG DAILY AC 10/13 0700 AC 10/18 PO 0704 Methadone HCl 55 MG DAILY 10/11 1839 AC 10/18 PO 1108 Nicotine 14 MG DAILY 10/12 1632 AC 10/18 TOP 1107 Olanzapine 5 MG 0810/19 0800 UNVr PO Olanzapine 10 MG AT BEDTIME 10/18 2200 UNVr PO Oxcarbazepine 300 MG BID 10/11 2200 AC 10/18 PO 1107 Trazodone HCl 100 MG AT BEDTIME 10/14 2200 DC 10/15 PO 2126 Trazodone HCl 50 MG AT BEDTIME NEED.. 10/13 1730 DC 10/16 PO 2322 Vital Signs Date Time Temp Pulse Resp B/P Pulse O2 O2 Flow FiO2 Ox Delivery Rate 10/18 1551 83 112/53 10/18 1207 79 119/67 10/18 0759 97.7 79 96/58 10/17 1946 95.8 71 91/63 ASSESSMENT: Patient presents today as calm and cooperative. Alert and oriented treatment. She reports that she does not have the will to live. Reports that she had a serious suicide attempt last year, by stabbing herself in the abdomen. We discussed possible treatment modalities, patient states that she would be interested in trying ECT. Patient reports that her sleep is not very good, states she is "up and down" during the night. Has asked that Vistaril be discontinued as it gives her a headache. Has asked that trazodone be discontinued because "it makes me foggy and cloudy the next day." Depression: 10/10; Anxiety: 10/10 (with 10 the worst.) Denies homicidal ideation, auditory hallucinations, visual hallucinations, paranoid ideation. Speech is well articulated, goal-directed, average in rate, volume and tone. The patient understands the risks/benefits/side effects of the medication and is agreeable to continue taking them. Patient had been treated inpatient at [facility] from 09/17/2016 to , discharge summary has been reviewed. PLAN: Anticipate family meeting with the patient's roommate tomorrow, possible discharge after that family meeting. Consider referral to outpatient ECT, which the patient is interested in. Discontinue Thorazine, and restart olanzapine, which had been given at [facility]. Patient is aware, and states that she prefers olanzapine. As per H&P treatment plan, increase levothyroxine to 75 g. Patient has taken 50 g for the past 6 days. Continue with other current management as patient is improving. Continue to provide support and encouragement.
[2016-10-18 19:51] VITALS: BP 94/60
--- NOTE | 2016-10-18 21:07 | NUR ---
PT HAS BEEN VISIBLE IN COMMUNITY INTERACTING WITH PEERS AND STAFF. PT HAS ATTENDED WRAP-UP MEETING.
--- NOTE | 2016-10-19 05:42 | NUR ---
PT APPEARED TO SLEEP WELL AFTER ADDITION OF 5 MG MELATONIN.
[2016-10-19 08:26] VITALS: BP 98/64
--- NOTE | 2016-10-19 11:08 | CP SOUTH PROGRESS NOTE PSYCH ---
Psych (Inpt) Progress Note Progress Note Progress Note: I discussed this patient's progress to date, current mental status, treatment process in the context of the treatment plan, and discharge planning with staff/ team in the daily morning inpatient team meeting. I also met with the patient myself in individual session. A total of 15 minutes was spent with the patient with more than 50% spent in counseling and/or coordination of care. SUBJECTIVE: "I don't feel like I can go home, not at all. I don't feel like I am ready to leave." OBJECTIVE: Current Medications Sig/Sudeep Start time Last Medication Dose Route Stop Time Status Admin Acetaminophen 650 MG Q4P PRN 10/11 1845 AC PO Al Hydroxide/Mg 30 ML Q4-6 PRN PRN 10/11 1845 AC Hydroxide PO Atorvastatin Calcium 80 MG 1700 10/12 1700 AC 10/18 PO 1545 Bisacodyl 5 MG DAILY NEEDED PRN 10/14 1515 AC 10/18 PO 1543 Chlorpromazine 25 MG TID 10/12 1600 DC 10/18 PO 1543 Chlorpromazine 25 MG Q4P PRN 10/12 1430 DC 10/18 PO 1212 Docusate Sodium 100 MG TID 10/14 1000 AC 10/19 PO 1013 Duloxetine HCl 90 MG DAILY 10/17 1000 AC 10/19 PO 1013 Famotidine 20 MG DAILY AC 10/13 0700 AC 10/19 PO 0847 Hydroxyzine HCl 25 MG TID PRN 10/16 1315 DC PO Levothyroxine Sodium 0.075 MG DAILY AC 10/19 0700 AC 10/19 PO 0847 Levothyroxine Sodium 0.05 MG DAILY AC 10/13 0700 DC 10/18 PO 0704 Melatonin 5 MG AT BEDTIME 10/18 2300 AC 10/18 PO 2308 Methadone HCl 55 MG DAILY 10/11 1839 AC 10/19 PO 1013 Nicotine 14 MG DAILY 10/12 1632 AC 10/19 TOP 1014 Olanzapine 5 MG 0800 10/19 0800 AC 10/19 PO 1013 Olanzapine 10 MG AT BEDTIME 10/18 2200 AC 10/18 PO 2026 Oxcarbazepine 300 MG BID 10/11 2200 AC 10/19 PO 1013 Trazodone HCl 100 MG AT BEDTIME 10/14 2200 DC 10/15 PO 212 Trazodone HCl 50 MG AT BEDTIME NEED.. 10/13 1730 DC 10/16 PO 2322 Vital Signs Date Time Temp Pulse Resp B/P Pulse O2 O2 Flow FiO2 Ox Delivery Rate 10/19 0826 97.5 91 98/64 10/18 1951 96.7 73 94/60 10/18 1551 83 112/53 10/18 1207 79 119/67 ASSESSMENT: Patient reports continuing suicidal ideation, depression and anxiety. She reports tolerating the switch to olanzapine last night, states that she had a good night sleep, after taking olanzapine 10 mg at bedtime. Nevertheless, she states "right now I just want to go back to bed and stay there." She reports tolerating her medications well, however depression, anxiety and suicidal thoughts persist. Again we discussed a referral to ECT, which the patient states that she is interested in pursuing. We are looking into that possibility at this time. Patient states that if she was scheduled for outpatient ECT, she would follow-up, and would be able to commit to not harming herself. She further states that she spoke with her mother last night, and that she can return home to live, at least on a short-term basis. Depression:10/10; Anxiety:10/10 (with 10 the worst.) Denies homicidal ideation, auditory hallucinations, visual hallucinations, paranoid ideation. Speech is well articulated, goal-directed, average in rate, volume and tone. The patient understands the risks/benefits/side effects of the medication and is agreeable to continue taking them. PLAN: Continue with current management as patient is improving. Continue to provide support and encouragement.
[2016-10-19 11:58] VITALS: BP 96/52
--- NOTE | 2016-10-19 14:30 | NUR ---
PT IS ISOALTIVE IN ROOM FOR MOST OF SHIFT. PT REPORTS FEELING DEPRESSED TODAY AND REPROTED FEELINGS OF SI. PT STATES SHE DOES NOT HAVE A PLAN WHILE IN HERE AND CONTRACTS FOR SAFETY. PT ENCOURAGED TO COME OUT INTO THE COMMUNITY MORE OFTEN AND DID FOR A LITTLE BIT. PT HAS NOT BEEN ATTENDING GROUPS.
[2016-10-19 15:56] VITALS: BP 119/70
[2016-10-19 19:44] VITALS: BP 105/60
--- NOTE | 2016-10-19 22:12 | NUR ---
Pt is out in the community mood is stable compliant with the staff. Vital signs are stable c/o no pain. Will continue to monitor the pt overnight.
--- NOTE | 2016-10-20 04:10 | NUR ---
PT APPEARED TO SLEEP. -SI.
[2016-10-20 08:40] VITALS: BP 116/74
--- NOTE | 2016-10-20 10:57 | SOCIAL WORKER PROG NOTE PSYCH ---
Social Work Progress Note Progress Note Patient endorsing +SI today and unable to contract for safety outside of the hospital. Patient presented with poor eye contact this morning, irritable and stating that she does not feel prepared to discharge the hospital. Patient is aware that we will not be discharging her today if she is feeling this way. I have left voicemail with patients insurance company inquiring about coverage for outpatient ECT treatment which patient is open to. I am waiting to hear back and will possibly make referral to [place] [facility] program for patient to follow up with.
[2016-10-20] MEDS ORDERED: CRESTOR20 M2 PO (11:15)
[2016-10-20] MEDS ORDERED: OXCARBAZEPINE300 M1 PO (11:16)
--- NOTE | 2016-10-20 11:36 | CP SOUTH PROGRESS NOTE PSYCH ---
Psych (Inpt) Progress Note Progress Note Progress Note: I discussed this patient's progress to date, current mental status, treatment process in the context of the treatment plan, and discharge planning with staff/ team in the daily morning inpatient team meeting. I also met with the patient myself in individual session. A total of 50 minutes was spent with the patient with more than 50% spent in counseling and/or coordination of care. SUBJECTIVE: "The depression is all the time. I'm always miserable. I can never look back at one happy time I've ever had." OBJECTIVE: Current Medications Sig/Sudeep Start time Last Medication Dose Route Stop Time Status Admin Acetaminophen 650 MG Q4P PRN 10/11 1845 AC PO Al Hydroxide/Mg 30 ML Q4-6 PRN PRN 10/11 1845 AC Hydroxide PO Atorvastatin Calcium 80 MG 1700 10/12 1700 AC 10/19 PO 1758 Bisacodyl 5 MG DAILY NEEDED PRN 10/14 1515 AC 10/18 PO 1543 Docusate Sodium 100 MG TID 10/14 1000 AC 10/20 PO 1108 Duloxetine HCl 90 MG DAILY 10/17 1000 AC 10/20 PO 1108 Famotidine 20 MG DAILY AC 10/13 0700 AC 10/20 PO 0705 Levothyroxine Sodium 0.075 MG DAILY AC 10/19 0700 AC 10/20 PO 0705 Melatonin 5 MG AT BEDTIME 10/18 2300 AC 10/19 PO 2135 Methadone HCl 55 MG DAILY 10/11 1839 AC 10/20 PO 1109 Nicotine 14 MG DAILY 10/12 1632 AC 10/20 TOP 1107 Olanzapine 5 MG 0810/19 0800 AC 10/20 PO 0705 Olanzapine 10 MG AT BEDTIME 10/18 2200 AC 10/19 PO 2136 Oxcarbazepine 300 MG BID 10/11 2200 AC 10/20 PO 1108 Vital Signs Date Time Temp Pulse Resp B/P Pulse O2 O2 Flow FiO2 Ox Delivery Rate 10/20 0840 97.4 70 116/74 10/19 1944 98.0 71 105/60 10/19 1556 74 119/70 10/19 1158 79 96/52 ASSESSMENT: Today I met the patient along with social work therapist Maria Isabel. We then conducted a family meeting by conference call along with the patient and her mother. We discussed discharge planning, including outpatient ECT treatment, IOP, and primary care follow-up. Both the patient and her mother agreed to this plan, and both expressed feeling encouraged and hopeful that this new plan would be helpful. Patient's mother agrees to have the patient return home, states that the patient's sister will be able to pick her up tomorrow if she is ready for discharge. Patient stated that although she has chronic passive suicidal ideation, that with this new plan, she believes that she would be safe, and would be able to follow-up appropriately, including attending ECT, IOP sessions, and taking her medications as prescribed. Depression:05/15; Anxiety:03/14 (with 10 the worst.) Patient states that she felt some anxiety last night, and she walked laps around the unit, which she felt was helpful in controlling her anxiety. Denies homicidal ideation, auditory hallucinations, visual hallucinations, paranoid ideation. Patient reports continuing suicidal thoughts, however she is able to contract for safety at this time. Speech is well articulated, goal-directed, average in rate, volume and tone. Cooperative. Alert and oriented 3. Logical. The patient understands the risks/benefits/side effects of the medication and is agreeable to continue taking them. PLAN: Anticipate discharge tomorrow. Continue with current management as patient is improving. Continue to provide support and encouragement.
[2016-10-20 12:33] VITALS: BP 117/72
--- NOTE | 2016-10-20 13:18 | NUR ---
PT WAS NOT VISIBLE MUCH IN THE MILIEU THIS MORNING. PT STATED THAT SHE WAS DEPRESSED AND WAS TIRED. SHE DID COME OUT LATER IN THE DAY AND PARTICIPATED IN ART GROUP. SHE HAS BEEN PLEASANT SINCE SHE CAME OUT OF ROOM, AND MORE SOCIAL. SHE HAS BEEN COOPERATIVE WITH STAFF DIRECTION. PT DID HAVE THOUGHTS THOUGH TO HURT HERSELF, SHE DENIES HAVING A PLAN WHILE HERE.
--- NOTE | 2016-10-20 15:59 | SOCIAL WORKER PROG NOTE PSYCH ---
Social Work Progress Note Progress Note Patient continued to endorse +SI this morning. Patient was unable to contract for safety this AM and felt uneasy with discharge plan. After meeting today, patient has agreed to attend IOP at [facility] and believes her co-pays will be waived by her medicaid coverage. This quality analyst/technical writer sent referal to [facility] for their review in order to schedule intake. I scheduled patient with PCP at [facility]. Patient will see Dr. Mcdonnell on 11/17/16 @ 12pm. I also spoke with Kenzie at [facility] regarding referral to ECT. I completed basic screening for patient, Kenzie is now waiting on referral from [facility] since they will be outpatient provider. I informed Kenzie that I am waiting for call back from [facility] in order to confirm her evaluation and let them know of our referral to ECT in addition to IOP at [facility]. Kenzie understands and will schedule patient for ECT evaluation after she has received confirmation from [facility] that they are on board with this plan. Patient is fully aware of this plan and on board. Patients move greatly improved by the end of the day and reports feeling prepared for discharge home tomorrow. Cuauhtemoc Cedillo APRN and I had phone conference with Carol and her mother today to discuss discharge plan. Carol's mother is on board with plan as well and is in support of Carol returning home to her house tomorrow.
[2016-10-20 16:28] VITALS: BP 123/67
[2016-10-20 19:42] VITALS: BP 114/70
--- NOTE | 2016-10-20 21:42 | NUR ---
PT IS CALM, COOPERATIVE WITH STAFF AND PEERS, AND COMPLIANT WITH UNIT RULES. PT IS IN MILIEU, INTERACTING WELL WITH OTHERS. MOOD IS STABLE, AFFECT IS EUTHYMIC TO FULL RANGE, COMMUNICATION IS NORMAL, AND APPETITE IS NORMAL. PT DENIES SI AT THIS TIME.
[2016-10-21 08:12] VITALS: BP 116/72
[2016-10-21] MEDS ORDERED: NICOTINE PATCH1 EAC2 TOP (08:44)
[2016-10-21] MEDS ORDERED: CYMBALTA30 M1 PO (08:46)
[2016-10-21] MEDS ORDERED: OLANZAPINE5 M2 PO (08:48)
[2016-10-21] MEDS ORDERED: DOCUSATE SODIU100 M3 PO (08:48)
[2016-10-21] MEDS ORDERED: FAMOTIDINE20 M1 PO (08:49)
[2016-10-21] MEDS ORDERED: MELATONIN5 M7 PO (08:49)
[2016-10-21] MEDS ORDERED: SYNTHROID75 MCG PO (08:49)
--- NOTE | 2016-10-21 09:06 | CP SOUTH PROGRESS NOTE PSYCH ---
Psych (Inpt) Progress Note Progress Note Progress Note: I discussed this patient's progress to date, current mental status, treatment process in the context of the treatment plan, and discharge planning with staff/ team in the daily morning inpatient team meeting. I also met with the patient myself in individual session. A total of 30 minutes was spent with the patient with more than 50% spent in counseling and/or coordination of care. OBJECTIVE: Current Medications Sig/Sudeep Start time Last Medication Dose Route Stop Time Status Admin Acetaminophen 650 MG Q4P PRN 10/11 1845 AC PO Al Hydroxide/Mg 30 ML Q4-6 PRN PRN 10/11 1845 AC Hydroxide PO Atorvastatin Calcium 80 MG 1700 10/12 1700 AC 10/20 PO 1604 Bisacodyl 5 MG DAILY NEEDED PRN 10/14 1515 AC 10/20 PO 1449 Docusate Sodium 100 MG TID 10/14 1000 AC 10/21 PO 0816 Duloxetine HCl 90 MG DAILY 10/17 1000 AC 10/21 PO 0816 Famotidine 20 MG DAILY AC 10/13 0700 AC 10/21 PO 0637 Levothyroxine Sodium 0.075 MG DAILY AC 10/19 0700 AC 10/21 PO 0637 Melatonin 5 MG AT BEDTIME 10/18 2300 AC 10/20 PO 2115 Methadone HCl 50 MG .STK-MED ONE 10/20 1104 DC PO 10/20 1105 Methadone HCl 5 MG .STK-MED ONE 10/20 1104 DC PO 10/20 1105 Methadone HCl 55 MG DAILY 10/11 1839 AC 10/21 PO 0816 Nicotine 14 MG DAILY 10/12 1632 AC 10/20 TOP 1107 Olanzapine 2.5 MG ONCE ONE 10/20 1830 DC 10/20 PO 10/20 1831 1851 Olanzapine 5 MG 0800 10/19 0800 AC 10/21 PO 0816 Olanzapine 10 MG AT BEDTIME 10/18 2200 AC 10/20 PO 2114 Oxcarbazepine 300 MG BID 10/11 2200 AC 10/21 PO 0816 Vital Signs Date Time Temp Pulse Resp B/P Pulse O2 O2 Flow FiO2 Ox Delivery Rate 10/21 811 96.8 75 116/72 10/20 1942 98.8 73 114/70 10/20 1628 75 123/67 10/20 1233 101 117/72 ASSESSMENT: Patient presents this morning in an upbeat, euthymic mood. Alert and oriented 3. Logical. States she is looking forward to ECT treatment, and promises to attend IOP. Reports that melatonin worked very well last night for sleep. Chronic depression and anxiety continue at her baseline, she states that she feels safe and ready for discharge. Denies homicidal ideation, auditory hallucinations, visual hallucinations, paranoid ideation. Patient reports chronic passive suicidal thoughts, which are her baseline. She states that today she is not having thoughts of hurting herself. She believes that she will be safe, she is forward-looking, looking forward to ECT treatment and IOP. Speech is well articulated, goal-directed, average in rate, volume and tone. The patient understands the risks/benefits/side effects of the medication and is agreeable to continue taking them. PLAN: Discharge today. Patient will return home to live with her mother and sister. They're supportive of the patient returning home and continuing treatment including ECT. Patient's sister is scheduled to be here this morning to bring her home. Continue with current management as patient is improving. Continue to provide support and encouragement.
--- NOTE | 2016-10-21 09:10 | DISCHARGE SUMMARY REPORT-PSYCH ---
Visit Information Visit Dates/Diagnosis' Admission Date: 10/11/16 Discharge Date: 10/21/16 Reason for Admission: The patient presented to the emergency department complaining of suicidal ideation stating that she's been feeling this way since August. States that she stopped taking her medications "because I wanted to." Reports long history of depression and suicidal ideation, has been in multiple treatments including DBT and IOP, claims that nothing has worked or helped her. Reports she tried to kill her self this episode by overdosing on cocaine from Tuesday through Tuesday. Psy Discharge Primary Diag: Bipolar d/o, depressed. Psy Discharge Secondary Diag: Borderline p/d by history; Cocaine use d/o; opioid use d/o on methadone maintenance; cannabis use d/o. Hospital Course Significant Lab Findings: Lab Carbon Dioxide 31 mmol/L H 10/11/16 1415 Estimated GFR 59 ml/min L 10/11/16 1415 Free T4 0.65 ng/dL 10/11/16 1415 TSH 105.000 uIU/mL H 10/11/16 1415 TSH &T3 &Free T4 Intrp < 0.015 uIU/mL L 06/05/15 1000 Total T3 2.05 ng/mL H 06/05/15 1000 Course Complications: Patient presented with elevated thyroid function tests. She reports that she had stopped taking her levothyroxine. Levothyroxine was restarted as per Dr. Cervantes. Please refer to his note for additional information. Consultations: Patient was seen for admission history and physical by Deny Cervantes MD. Please refer to his note for additional information. Allergies: Coded Allergies: haloperidol (From HALDOL) (Severe, RIGIDITY 10/11/16) Penicillins (UNKNOWN 10/11/16) clindamycin (UNKNOWN 10/11/16) Hospital Course/TX Response: The patient was monitored on the unit for safety, suicidal ideation, depression and anxiety, anhedonia. She participated in multimodal treatments on the unit. Medications including levothyroxine, and medication for hyperlipidemia were restarted. Patient was continued on methadone maintenance as per outpatient dosing. She was medicated with Zyprexa for clear thoughts, Cymbalta for depression and anxiety, Trileptal for mood stability. She found melatonin helpful for nighttime sleep. A family meeting was held along with the patient, the unit community mental health social worker, and her mother by conference call. Patient's mother agreed that the patient may return home, and encouraged the patient to take her medications on a regular basis and attend treatment as recommended. Today, the day of discharge, she presents in an upbeat, euthymic mood. Alert and oriented 3. Logical. States she is looking forward to ECT treatment, and promises to attend IOP. Reports that melatonin worked very well last night for sleep. Chronic depression and anxiety continue at her baseline, she states that she feels safe and ready for discharge. Denies homicidal ideation, auditory hallucinations, visual hallucinations, paranoid ideation. Patient reports chronic passive suicidal thoughts, which are her baseline. She states that today she is not having thoughts of hurting herself. She believes that she will be safe, she is forward-looking, looking forward to ECT treatment and IOP. Speech is well articulated, goal-directed, average in rate, volume and tone. The patient understands the risks/benefits/side effects of the medication and is agreeable to continue taking them. She reports tolerating her medications well, without complaint. States she feels safe and ready for discharge. Discharge HBIPS - Tobacco Use Treatment Offered Post DC Medications Offered: Script Given-See Med List Post DC Tobacco Treatment Plan: [facility] Program Appt Date: 10/27/16 Program Appt Time: 1600 - EtOH/Drug Use D/O Treatment Offered Post DC Medications Offered: Ref Med EtOH/Drug Use D/O Post DC EtOH/SubAbuse TX Plan: Other SubAbuse/Dual Pgm Program Appt Date: 10/25/16 Program Appt Time: 0800 Metabolic Screening - Screen if on a Neuroleptic Medication - Metabolic screening should include: - Blood Pressure, BMI, Glucose or Hgb A1c, & a - Lipid profile from within the past 365 days. Metabolic Screening () Not Applicable, patient not on a neuroleptic. OR ([x]) Patient on a neuroleptic(s) . Enter below results for Glucose or Hemoglobin A1C, and lipid panel if obtained during the last 365 days. BMI: Blood Pressure: 116/72 Laboratory Results (If applicable): Lab Cholesterol 179 MG/DL 10/13/16 0415 Cholesterol/HDL Ratio 4 % 10/13/16 0415 HDL Cholesterol 46 mg/dL 10/13/16 0415 Hemoglobin A1c 5.9 H 02/08/17 0415 LDL Cholesterol, Calc 63 mg/dL L 10/13/165 Triglycerides 350 mg/dL H 10/13/16 0415 Discharge Instructions General Discharge Information Discharge Medications: Discharge Medications- (Dose, route, freq, indication): HOME MEDICATION LIST START taking these NEW Home Medications: Nicotine (Nicotine Dose: On the skin, DAILY for Qty: 14 Called in to Patch) 14 MG/24 HOUR 14 Milligram SMOKING CESSATION Refills: 0 Pharm 1 PATCH.TD24 Last Taken: 10/20/16 Time: 1100 Duloxetine Dose: ORAL, DAILY for Qty: 42 Called in to Hydrochloride 90 Milligram DEPRESSION Refills: 0 Pharm 1 (Cymbalta) 30 MG Last Taken: 10/21/16 CAPSULE.DR Time: 0800 Olanzapine Dose: ORAL, TWICE DAILY for Qty: 42 Called in to (Olanzapine) 5 MG 5 Milligram CLEAR THOUGHTS Refills: 0 Pharm 1 TABLET TAKE ONE TAB IN THE MORNING, AND TWO TABS AT NIGHT. Last Taken: Zyprexa 5mg on 10/21/16 @ 0800 Zyprexa 10mg on 10/20/16 @ 2100 Docusate Sodium Dose: ORAL, THREE TIMES DAILY Qty: 42 Called in to (Docusate Sodium) 100 Milligram for CONSTIPATION Refills: 0 Pharm 1 100 MG CAPSULE Last Taken: 10/21/16 Time: 0800 Famotidine Dose: ORAL, DAILY BEFORE Qty: 14 Called in to (Famotidine) 20 MG 20 Milligram BREAKFAST for GERD Refills: 0 Pharm 1 TABLET Last Taken: 10/21/16 Time: 0630 Levothyroxine Sodium Dose: ORAL, DAILY BEFORE Qty: 14 Called in to (Synthroid) 75 MCG 0.075 BREAKFAST for THYROID Refills: 0 Pharm 1 TABLET Milligram Last Taken: 10/21/16 Time: 0630 Melatonin Dose: ORAL, AT BEDTIME for Qty: 14 Called in to (Melatonin) 5 MG 5 Milligram SLEEP AID Refills: 0 Pharm 1 TABLET Last Taken: 10/20/16 Time: 2100 CONTINUE taking these Home Medications: Methadone HCl (Methadone Dose: ORAL, DAILY for RECOVERY HCl) 10 MG/ML ORAL.CONC 55 Milligram Last Taken: 10/21/16 Time: 0800 Rosuvastatin Calcium Dose: ORAL, DAILY for Renewed (Crestor) 20 MG TABLET 1 Tablet CHOLESTEROL Called in to Last Taken: LIPITOR Pharm 1 80MG ON 10/20/16 Time: 1600 Oxcarbazepine Dose: ORAL, TWICE DAILY for Renewed (Oxcarbazepine) 300 MG 1 Tablet MENTAL HEALTH Called in to TABLET Last Taken: 10/21/16 Pharm 1 Time: 0800 STOP taking these DISCONTINUED Home Medications: Levothyroxine Sodium Dose: ORAL, DAILY BEFORE BREAKFAST for (Levothyroxine Sodium) 125 MCG 1 Tablet THYROID TABLET Reason Stopped: Changed Dose 1: [id number], [address] [place] [id number] Your Preferred [id number] [address] [place] [id number] Multiple Neuroleptics: (x) Not Applicable OR Document below three failed attempts at monotherapy, or a plan to taper to monotherapy, or augmentation of Clozapine. () Patient's Diet: Regular Patient's Activity: No restrictions DC Disposition: Patient returning home where she lives with her mother, and sister. Recommendations: Maintain sobriety. Follow-up at [facility], and [facility]. Referred To: [address] Walk-in intake on 10/25/2016 at 8:00 AM. Primary care: [address] [address] [address] Mcdonnell Appointment on 11/17/2016 at 12:00 noon Copies To: Dr. Mcdonnell; [facility]. [facility]al Healt
--- NOTE | 2016-10-21 10:17 | NUR ---
PT SCHEDULED FOR DISCHARGE TODAY @ 1100AM, PT IS MEETING WITH LAVINIA SHARMA APRN CURRENTLY, IS PRESENT ON THE UNIT, SOCIAL WITH PEERS AND STAFF, NO ISSUES OR COMPLAINTS REPORTED OR OBSERVED, WHEN ASKED DIRECTLY DENIES SI/HI/HALLUCINATIONS. INFORMATION PACKETS RE: SI, BIPOLAR AND DEPRESSION GIVEN TO PT. PT RESOURCE GUIDE REVIEWED WELL ALONG WITH PERTINENT PHONE NUMBERS I.E., [facility], [facility], [facility]OT[facility], ETC. PT HAS + UNDERSTANDING OF MEDICATION REGIMENT AND MOTIVATED FOR DISCHARGE FOLLOW-UP PLAN, REPORTS FEELING BETTER AND OVER + SLEEP/MOOD/APPETITE, REPORTS + SUPPORT SYSTEMS WELL, MOOD STABLE WITH FULL RANGE & APPROPRIATE AFFECT AND BEHAVIOR.
--- NOTE | 2016-10-21 12:13 | SOCIAL WORKER PROG NOTE PSYCH ---
Social Work Progress Note Progress Note Patient to discharge the hospital today. Patient presented today with brighter mood and affect, engergy increased and aware of aftercare plan. Patient was denied admission to [facility] due to previous incidents that they would not disclose. They referred patient to [facility] instead. [facility] completed intakes ,,TUE 8am and patient has agreed to attend this coming 10/25/16 @ 8am. Patient is aware that in order to obtain intake for ECT at [facility], she needs [facility] recommendation for this type of treatment. Patient also was set up with a PCP at [facility] and has appointment on 11/17/16 @ 12pm with Dr. Mcdonnell. Patient is aware of all appointments and expressed her desire to complete IOP with [facility] in order to receive their referral to ECT at [facility].
== END 2016-10-21 11:13 | DRG 885 ==
LOC: ERH 13:41 → CP SOUTH 18:35 → ERHI 18:35 → CP SOUTH 23:00
PROVIDERS: Physician Assistant; ADMIT Psychiatry & Neurology Psychiatry
DX: F31.9 Bipolar disorder, unspecified (principal); F11.10 Opioid abuse, uncomplicated; F14.10 Cocaine abuse, uncomplicated; F12.10 Cannabis abuse, uncomplicated
CPT/HCPCS: 36415; 80307; 81025; 93005; 93010; G0480; J3230

== ENCOUNTER 2017-01-18 19:23 | Emergency (ER) | payer MEDICARE, OTHER ==
[~2017-01-18] VITALS: Ht 170.2 cm; Wt 77.1 kg
[~2017-01-18 19:23] MED LIST: CRESTOR20 M2 PO; CYMBALTA30 M1 PO; DOCUSATE SODIU100 M3 PO; DULOXETINE HCL30 MG PO; FAMOTIDINE20 M1 PO; LEVOTHYROXINE125 MCG PO; MELATONIN5 M7 PO; METHADONE10 MG/1 M2 PO; NICOTINE PATCH1 EAC2 TOP; OLANZAPINE10 M1 PO; OLANZAPINE5 M2 PO; OXCARBAZEPINE300 M1 PO; SYNTHROID75 MCG PO
--- NOTE | 2017-01-18 19:46 | ED PSYCHIATRIC COMPLAINT ---
See Addendum History of Present Illness General Chief Complaint: Psychiatric Related Complaint Stated Complaint: +SI [id number] Source: patient Exam Limitations: no limitations Vital Signs & Intake/Output Vital Signs & Intake/Output Vital Signs Date Time Temp Pulse Resp B/P B/P Pulse O2 O2 Flow FiO2 Mean Ox Delivery Rate 01/20 1907 96.6 64 20 98/62 92 01/20 1404 98.2 84 18 120/78 97 Room Air 01/20 1114 97.5 80 18 116/74 98 Room Air 01/20 0922 98.0 86 18 108/68 97 Room Air 01/20 0609 97.6 69 18 121/81 94 Room Air Allergies Coded Allergies: haloperidol (From HALDOL) (Severe, RIGIDITY 10/11/16) Penicillins (UNKNOWN 10/11/16) clindamycin (UNKNOWN 10/11/16) Triage Note: STATES FEELING SUICIDAL FOR PAST 2 WEEKS FEELING VERY ANXIOUS Triage Nurses Notes Reviewed? yes Onset: Abrupt Duration: day(s):, constant, continues in ED Timing: recent history Severity: moderate, severe HPI: 46-year-old female comes into emergency room for further evaluation of suicidal ideation. Patient reports that she's been feeling very depressed and having thoughts of wanting to hurt herself. She did some cocaine earlier today with the intention of hurting herself. She denies any chest pain. Denies any alcohol or any other drug use. Patient reports she is very anxious. She has had previous suicide attempts in the past including trying to stab herself one time. Denies any other associated symptoms. (DAVON VU,SUSIE) Reconcile Medications Duloxetine Hydrochloride (Cymbalta) 30 MG CAPSULE.DR 90 MG PO DAILY DEPRESSION Levothyroxine Sodium (Synthroid) 125 MCG TABLET 1 TAB PO DAILY THYROID ( Reported) Methadone HCl 10 MG/ML ORAL.CONC 55 MG PO DAILY RECOVERY (Reported) Olanzapine (Zyprexa) 20 MG TABLET 1 TAB PO BID MENTAL HEALTH (Reported) Oxcarbazepine 300 MG TABLET 1 TAB PO BID MENTAL HEALTH (Reported) Sertraline HCl 100 MG TABLET 1 TAB PO DAILY MENTAL HEALTH (Reported) (SARAH DUBON,LAMBERTO Garcia) Past History Travel History Traveled to [place] past 21 day No Medical History Any Pertinent Medical History? see below for history Neurological: NONE EENT: NONE Cardiovascular: NONE Respiratory: NONE Gastrointestinal: Crohn's disease Hepatic: NONE Renal: NONE Musculoskeletal: chronic back pain, disk herniation, fibromyalgia, rheumatoid arthritis, spinal stenosis Psychiatric: anxiety, bipolar disease, chronic pain disorder, depression, opioid dependence, substance abuse Endocrine: hyperthyroidism, Hyperthyroidism was treated with radioactive iodine. 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 No (SUSIE WHITAKER) Review of Systems Review of Systems Constitutional: Reports: no symptoms. EENTM: Reports: no symptoms. Respiratory: Reports: no symptoms. Cardiovascular: Reports: no symptoms. GI: Reports: no symptoms. Genitourinary: Reports: no symptoms. Musculoskeletal: Reports: no symptoms. Skin: Reports: no symptoms. Neurological/Psychological: Reports: see HPI. Hematologic/Endocrine: Reports: no symptoms. Immunologic/Allergic: Reports: no symptoms. All Other Systems: Reviewed and Negative (SSUIE WHITAKER) Physical Exam Physical Exam General Appearance: well developed/nourished, mild distress Head: atraumatic Eyes: Bilateral: normal appearance. Ears, Nose, Throat: normal ENT inspection, hearing grossly normal Neck: normal inspection Respiratory: no respiratory distress Cardiovascular: regular rate/rhythm Extremities: normal range of motion Neurological/Psychiatric: awake, agitated, alert, normal mood/affect Appearance/Memory/Insight: appropriate appearance Behavoir/Eye Contact/Speech: cooperative Thoughts/Hallucinations: no apparent hallucination Skin: intact, normal color, warm/dry SAD PERSONS SAD PERSONS Response Value Age <19 or >45 years? yes 1 Depression/Hopelessness? yes 2 Previous Attempts/Psych Care yes 1 Excessive Ethanol/Drug Use? yes 1 Rational Thinking Loss? yes 2 Single//? yes 1 Social Support? has no support 1 Total 9 SAD PERSONS Done? yes (SUSIE WHITAKER) Progress Differential Diagnosis: dementia, drug intoxication, drug overdose, drug withdrawal, electrolyte abnormality, encephalitis, hypoglycemia, hypothyroidism, IC hem/mass/tumor, meningitis, depression, bipolar, borderline personality, Plan of Care: Current Medications Sig/Sudeep Start time Last Medication Dose Stop Time Status Admin Methadone HCl 55 MG DAILY@0800 01/21 0800 AC (Dolophine) Famotidine 20 MG DAILY@0700 01/21 0700 UNVr (Pepcid) Docusate Sodium 100 MG BID 01/20 2200 UNVr (Colace) Melatonin 5 MG AT BEDTIME 01/20 2200 UNVr (Melatonin) Olanzapine 10 MG BID 01/20 2200 UNVr (Zyprexa) Nicotine 14 MG DAILY 01/20 175 UNVr (Nicotine Cq) Sertraline HCl 100 MG DAILY 01/20 145 UNVr 01/20 (Zoloft) 1645 Duloxetine HCl 90 MG DAILY 01/20 145 UNVr 01/20 (Cymbalta) 1645 Levothyroxine Sodium 0.125 MG DAILY 01/20 145 UNVr 01/20 (Synthroid) 1645 Oxcarbazepine 300 MG BID 01/20 145 UNVr 01/20 (Trileptal 150MG Tab) 1645 Lorazepam 1 MG Q6P PRN 01/20 1345 AC 01/20 (Ativan) 1656 Lorazepam 2 MG FOUR TIMES A DAY PRN 01/20 0215 AC 01/20 (Ativan) 1032 Hand-Off Endorsed To: LAMBERTO AYERS MD Endorsed Time: 32 Pending: other (bed search) (DAVON VU,SUSIE) Comments: 01/19/2017 1:03:16 AM patient signed out to me by HORACE Cruz. Reevaluation in the morning by crisis. 01/19/17 9:30am uneventful ED stay overnight. pt signed out to dr العراقي. 01/20/2017 9:01:18 AM patient signed out to me by Dr. Brunner at shift awake overnight monitor. Patient to be committed by the psychiatry service. Bed search in progress. 01/20/2017 8:36:50 PM patient signed out to Dr. Whiting at shift awake overnight monitor. (LAMBERTO AYERS MD) Hand-Off Endorsed To: LAMBERTO AYERS MD Endorsed Time: 0700 Pending: other Comments: 01/19/17, 23:00.... pt signed out to Myesha... bed search... 01/19/17, 7am... pt signed out to dr. ayers. (MYESHA DUBON,RAMO Graf) Hand-Off Endorsed To: AYERS MD,LAMBERTO Douglas Time: 0700 Pending: other (bed search) (ALKA DUBON,ALANNA) Departure Departure Disposition: STILL A PATIENT Condition: Stable Clinical Impression Primary Impression: Major depression Referrals: SILVIANO NEVES MD Departure Forms: Customer Survey General Discharge Information (DAVON VU,SUSIE) Departure Comments 03/21/17 11:00 am The patient was signed out to me by Dr. Ayers at 8:30 AM. (LAMBERTO العراقي DO)
[2017-01-18 19:58] LABS: ABSOLUTE BASOPHIL COUNT 0 /CUMM (0.0-0.2); ABSOLUTE EOSINOPHIL COUNT 0 /CUMM (0.0-0.7); ABSOLUTE LYMPH COUNT 1.2 /CUMM (1.2-3.4); ABSOLUTE MONOCYTE COUNT 0.6 /CUMM (0.10-0.60); BASOPHIL % 0.3 % (0.0-2.0); EOSINOPHIL % 0.1 % (0-5); HEMATOCRIT 36.2 % (37-47); MEAN CORPUSCULAR HGB CONC 34.6 G/DL (33.0-37.0); MEAN CORPUSCULAR VOLUME 83.9 FL (81.0-99.0); MEAN PLATELET VOLUME 7.4 FL (7.4-10.4); PLATELET COUNT 348 /CUMM (130-400); RBC DISTRIBUTION WIDTH 15.6 % (11.5-14.5); RED BLOOD CELL CT 4.31 /CUMM (4.20-5.40); WHITE BLOOD CELL COUNT 9.9 /CUMM (4.8-10.8)
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
[2017-01-19] MEDS ORDERED: SERTRALINE HCL100 MG PO (21:25)
[2017-01-19] MEDS ORDERED: SYNTHROID125 MCG PO (21:26)
[2017-01-19] MEDS ORDERED: ZYPREXA20 M1 PO (21:27)
--- NOTE | 2017-01-20 17:49 | ED PSYCHIATRIST/APRN CONSULT ---
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 The patient is a 46 yo SWF known to me from [facility]. Please see my note of 10/12. The patient remembers me. States she tried to commit suicide by overdosing on $ 100 worth of cocaine, "inhaled, smoked and snorted" on the night of presentation. Intention was to . The patient has a lengthy psychiatric and substance abuse history. Reports home medications were: Colace 100 mg t.i.d. Zoloft 100 mg daily Cymbalta 90 mg daily Zyprexa 20 mg b.i.d. Pepcid 40 mg daily Levothyroxine 125 g daily Melatonin q.h.s. Methadone 55 mg daily Trileptal 300 mg b.i.d. Reports she is off of Crestor Mental status examination: The patient is a white woman sitting on her bed in the emergency room. She is calm, polite and cooperative. There is no psychomotor agitation or retardation. Speech is normal in volume, rate and tone. Affect is tearful, depressed and crying. She is very distraught. Reports mood is very depressed at 10/10. Reports anxiety is 10+/10. Describes feeling extremely lonely at 10/10. Feels hopeless, helpless, worthless and guilty. Reports ongoing suicidal ideation. Denies homicidal ideation. Denies auditory and visual hallucinations. Denies paranoid ideation and magical okeefe. Insight and judgment are poor. There is no apparent thought disorder or delusions. The patient is oriented 3 except she gives the date as 01/19/17. Cognition is grossly intact and at usual baseline. Estimate of intellectual functioning is average. Describes sleep and appetite as poor. Describes energy as no good. The patient is very distraught that she is not a candidate for admission to [facility]. Reports she drove here from [place] specifically because she wanted admission to [facility]'s psychiatric inpatient unit. I explained to her that because of administrative reasons, she is not a candidate for admission to our unit. IMPRESSION: Bipolar disorder, depressed. Cocaine use disorder. Opioid use disorder on maintenance therapy. Borderline personality disorder. Crohn's disease. Continue to observe and treat in the emergency room. Continue bed search. I informed the patient that she is on a physician's emergency certificate. I informed her that she may file for a probable cause hearing if she wishes to leave.
[2017-01-21 18:42] VITALS: BP 108/64
[2017-01-21] MEDS ORDERED: DULOXETINE HCL60 MG PO (19:23)
[2017-01-21] MEDS ORDERED: FAMOTIDINE20 M1 PO (19:24)
[2017-01-21] MEDS ORDERED: BUSPIRONE HCL15 M1 PO (19:24)
[2017-01-21] MEDS ORDERED: OLANZAPINE5 M2 PO (19:24)
[2017-01-21] MEDS ORDERED: OLANZAPINE10 M1 PO (19:24)
[2017-01-21] MEDS ORDERED: TRILEPTAL300 M1 PO (19:25)
--- NOTE | 2017-01-21 23:33 | ED PSYCHIATRIST/APRN CONSULT ---
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 She is a 46 years old, single female, childless, domiciled, living with a friend, unemployed, who self-referred to the emergency room at [facility] on 01/17 complaining of suicidal ideation with plan and attempt to overdose on cocaine. The patient is known to us from previous inpatient treatment in October 2016. We reviewed the medical record reports starting on ED presentation. The patient continues to remain in the emergency room because she continued to be suicidal with the plan to overdose and there is a bed search undergoing. The patient would be unable to be hospitalized on [facility] because of close friend being inpatient at this time. The patient was individually interviewed. She is a 46 years old female, looking older than stated age, of medium height, slightly overweight, with only fair hygiene, dressed in [facility] issued paper scrubs, sitting at the edge of her bed in the emergency departments room number 13. She is very pale, with very pale blue eyes, looking distraught. Her speech is well articulated, soft, slow, goal-directed. There is no evidence of delusional ideation, itz or hypomania, thought processes are linear. The patient expresses feelings of hopelessness,s, worthlessness and uselessness. She was unable to identify any reasons for her to continue living. Continues to be suicidal with the plan to overdose. The patient denies homicidal ideation, auditory/visual hallucinations or side effects from the medications she takes. The patient states: "I don't think this medication is doing anything for me. Or maybe it's just me. I feel so tired, without any motivation, I'd rather stay in bed all day." The patient has previous serious suicidal attempts and psychiatric hospitalizations. The patient suffers from chronic pain from fibromyalgia, spinal stenosis, rheumathoid arthritis. She is treated for hypertension and hypothyroidism as a result of iodine ablation of thyroid for hyperthyroidism The patient is taking Zoloft, Zyprexa and Trileptal for treatment of bipolar disorder. She is caring a diagnosis of borderline personality disorder as well. The patient continues to be a danger to herself, having suicidal ideation with plan and recent attempt. Needs inpatient level of care. The bed search is to be continued. Will continue to follow the patient daily.
== END 2017-01-21 20:06 | disposition short-term general hospital (02) ==
LOC: ERH 19:23
PROVIDERS: Physician Assistant Medical
DX: F32.9 Major depressive disorder, single episode, unspecified (principal); F14.10 Cocaine abuse, uncomplicated
CPT/HCPCS: 80307; 81025; G0463; G0480